=== PATIENT | female | born 1950 | race Caucasian/White ===

== ENCOUNTER 2024-01-29 10:34 | Outpatient (REF) | payer MEDICARE, SELFPAY ==
[2024-01-29 13:23] LABS: MANUAL DIFF FLAG NO
[2024-01-29 13:35] LABS: Basophils Absolute Auto 0.1 X10*3/uL (0.0-0.2); Basophils Percent Auto 0.7 % (0-2); Eosinophils Absolute Auto 0.2 X10*3/uL (0.0-0.4); Eosinophils Percent Auto 2.6 % (0-4); Hemoglobin 15.5 g/dl (12.0-16.0); Imm Gran Abs Auto 0.02 X10*3/uL (0.00-0.03); Imm Gran Pct Auto 0.3 % (0.0-0.4); Lymphocytes Absolute Auto 1.2 X10*3/uL (1.2-4.9); Lymphocytes Percent Auto 17.3 % (20-40); Mean Corpuscular HGB Conc 33.7 g/dl (31.0-35.0); Mean Corpuscular Hemoglobin 30.5 pg (27.0-33.0); Mean Corpuscular Volume 90.4 fL (80.0-98.0); Mean Platelet Volume 10.4 fL (9.4-12.3); Monocytes Absolute Auto 0.8 X10*3/uL (0.1-1.2); Monocytes Percent Auto 11.1 % (2-11); Neutrophils Absolute Auto 4.8 x10*3/uL (2.0-8.3); Platelet Count 326 X10*3/uL (160-400); Red Blood Count 5.09 X10*6/uL (4.20-5.50); Red Cell Distribution Width 12.6 % (11.0-16.0)
[2024-01-29 14:17] LABS: Alanine Aminotransferase 29 U/L (0-31); Albumin Level 4.1 g/dL (3.5-5.0); Alkaline Phosphatase 103 U/L (39-117); Anion Gap 14 (12-20); Aspartate Amino Transferase 25 U/L (5-31); Bilirubin Total 0.6 mg/dL (0.0-1.0); Blood Urea Nitrogen 22 mg/dL (9-16); Calcium 9.7 mg/dL (8.4-10.2); Carbon Dioxide 26 mmol/L (22-29); Chloride 103 mmol/L (96-108); Estimated Glomerular Filt Rate > 60; Glucose Random 92 mg/dL (60-115); Potassium 4.4 mmol/L (3.3-5.1); Sodium 139 mmol/L (135-145); Total Protein 7.5 g/dL (6.5-8.0)
[2024-01-29 14:23] LABS: Thyroid Stimulating Hormone 0.01 uIU/mL (0.32-4.0)
[2024-01-29 14:33] LABS: Folate 12.8 ng/mL (> or = 4.0); Vitamin B12 474 pg/mL (200-900)
[2024-01-29 15:16] LABS: T4 Thyroxine 7.8 ug/dL (4.5-12.0)
== END 2024-01-29 10:35 | disposition home or self-care (01) ==
LOC: HO.MANLDS 10:34
PROVIDERS: Visit Provider Internal Medicine
DX: E03.9 Hypothyroidism, unspecified (principal); R41.89 Other symptoms and signs involving cognitive functions and awareness
CPT/HCPCS: 36415; 80053; 82607; 82746; 84436; 84443; 85025

== ENCOUNTER 2024-11-23 15:55 | Outpatient (REF) | payer MEDICARE, SELFPAY ==
[2024-11-23 18:19] LABS: MANUAL DIFF FLAG NO
[2024-11-23 18:27] LABS: Basophils Percent Auto 0.6 % (0-2); Eosinophils Absolute Auto 0.3 X10*3/uL (0.0-0.4); Eosinophils Percent Auto 4.5 % (0-4); Hematocrit 44.2 % (37.0-47.0); Imm Gran Abs Auto 0.02 X10*3/uL (0.00-0.03); Imm Gran Pct Auto 0.3 % (0.0-0.4); Lymphocytes Absolute Auto 2.1 X10*3/uL (1.2-4.9); Lymphocytes Percent Auto 30.6 % (20-40); Mean Corpuscular HGB Conc 33.9 g/dl (31.0-35.0); Mean Corpuscular Hemoglobin 29.7 pg (27.0-33.0); Mean Corpuscular Volume 87.5 fL (80.0-98.0); Mean Platelet Volume 10.3 fL (9.4-12.3); Monocytes Absolute Auto 0.8 X10*3/uL (0.1-1.2); Monocytes Percent Auto 11.6 % (2-11); Neutrophils Absolute Auto 3.5 x10*3/uL (2.0-8.3); Neutrophils Percent Auto 52.4 % (45-73); Platelet Count 340 X10*3/uL (160-400); Red Blood Count 5.05 X10*6/uL (4.20-5.50); Red Cell Distribution Width 12.5 % (11.0-16.0); White Blood Count 6.7 X10*3/uL (4.8-10.8)
--- OUTSIDE RECORDS SUMMARY | 2024-11-23 18:27 | XMS_ITS | Data Portability ---
Author Organization [facility] [employer] [facility], [facility] Address [address] [address] Care Team Providers Care Gas And Oil Checker Name Role Phone GERALD GO Primary Care Provider Assessment Encounter Date Assessment Date Assessment LastModified by Organization Details LastModified Time 03/15/2024 03/15/2024 Assessment and plan based on Geriatric 5 M framework (Mind, Mobility, Multicomplexity , Medications, and Matters Most) Bindu is a lolly, generous person who brought her father to live with her and provided him 06/04 care during [facility]. He Aug 2024 and she has noticed some cognitive changes herself since then - including forgetting if she took meds, forgetting if the kettle is on, forgetting at times where to turn when driving. Mind: Cognition: Cognitive changes which at this time seem consistent with normal aging changes which are superimposed on some anxiety/stress from taking care of her father and dealing with his affairs after his . Labs: 01/29/24: CBC wnl. Cr 0.82, BUN 22, Ca 9.7, glucose 92, TSH 0.01, FT4 7.8, B12 474 Folate 12.8 Head imaging: MRI done 02/27/24 at [facility]. read as normal overall. no evidence of a regional brain parenchymal volume loss pattern or hydrocephalus. MOCA 8.1, done today, 03/15/2024 VIsuospatial/ex ecutive: 01/16 Namin/3 Attention: 02/17 Language: 33 Abstraction: 2/2 Delayed recall: /; MIS = 15 Orientation: 02/17 Score: 30/30 Plan: Had MRI Brain done - no sig findings She knows that her TSH is suppressed but has a hard time regulating it. Would see if perhaps it might be helpful to lower her dose of Effort Thyroid if feeling more anxious, over talking, palpitations -- but appreciate this has been difficult to regulate and she doesnt want to gain 30 lbs. There are some things that we know can help with overall cognition. Important to be an active listener - repeat back, write things down. If she notices she is overtalking, would try to do a box breath to slow her mind down. Our ability to multi- task gets worse as we get older Try to just do one thing at a time Physical activity is the best thing - 30 minutes 4-5 times a week but start off slow and build up - could it be Sandro or getting back to belly dancing? Mental activity - learning a new skill Social activity Meditation and/or Speedy Chi can help Would work to treat anxiety as well - consider sertraline. Would work to put pills in a pill box Consider an electric tea kettle to prevent leaving the stove on. Would use GBS when driving. Please contact if you notice further changes. Diagnosis reviewed? No dx at this time. Mood: h/o longstanding depression with some anxiety She notices (as do I) that she is overtalking people and has a hard time slowing down. No other signs of joana noted and she wonders if this is due to some anxiety. Plan: Continue with therapy Consider seeing a psychiatrist. She likes to sing - it makes her happy. Would work to get in some physical exercise as well as try meditation. Consider a SSRI like sertraline to help with anxiety - it may improve her thought process as well. Mobility: not an issue at this time though not doing things for exercise. Multicomplexity / Medications: Plan: Would put pills in a pill box Matters most: trying to survive and help other people and animals. ACP: Health care proxy: Mello Quintanilla: didnt discuss I personally spent 140 minutes preparing for, caring for the patient (F2F and non-F2F), and finalizing the visit for this patient, which included discussion with patient and/or family about diagnosis, prognosis, recommendations , risk/benefits, risk reduction and education of above. Thank you for this interesting consult. Will f/u as needed. [email or web address] Not available 03/15/2024 21:15:34 Plan of Treatment Reminders Order Date Submit Date Provider Last Modified By Organization Details Last Modified Time Details Appointments None record ed. Lab None record ed. Referral None record ed. Procedures None record ed. Surgeries None record ed. Imaging None record ed. Medication Orders None record ed. Patient TargetsNo targets recorded. Patient InstructionsNo instructions recorded. Reason for Referral None Reported. Results Created Date Observation Date Name Description Value Unit Range Abnormal Flag Note LastModifiedBy Organization Detail LastModifiedTime 03/23/20 24 03/23/2024 MRI, brain , w/o contr ast No observ ation record ed. [email or web address] [facility] [address], [place], [address], 03/26/2024 03:30:44 Result Notes None recorded. Problems Name Problem SNOMED Code Status Onset Date Resolution Date Notes Provider Name and Address Organization Details Recorded Time Memory impairment 922745696 Active 2023 Hui Os[facility] MD [address], [place], [address], [employer] 4 13:17:44 Asthma 811150665 Active 2023 Hui [facility] MD [address], [place], [address], [employer] 4 13:17:50 Osteoporosis 34690003 Active 2023 Hui Os[facility] MD [address], [place], [address], [employer] 4 13:18:00 Palpitations 82472376 Active 2023 Hui Os[facility] MD [address], [place], [address], [employer] 4 13:18:08 Hypothyroidism 36506983 Active 2023 Hui Osborne MD [address], [place], [address], [employer] 4 13:18:22 Anxiety 96547399 Active 2023 Hui Os[facility] MD [address], [place], [address], [employer] 4 21:15:55 Problem Notes None recorded. Procedures Surgical History None recorded. Imaging Results Imaging Date Name Status LastModified by Organiz ation Details LastModified Time 03/23/2024 MRI, brain, w/o contrast completed [email or web address] [facility] [address] [facility], [place], [address], 03/26/2024 03:30:44 Procedure Notes None recorded. Medical Equipment None Reported. Allergies Allergen ID Allergen Name Allergen Category Reaction Reaction Severity Criticality Documentation Date Start Date Code Code System Note Provider Name and Address Organization Details Recorded Time 218 Iodinated contrast media (substanc e) medicatio n hives Not available unabletoasse 03/15/2024 44904 2003 SNOMED Natalia [employer] [facility] [employer] 4 12:59:42 Medications Name Sig Start Date Stop Date Status Note LastModified by Organization Details LastModified Time Effort Thyroid 90 mg tablet active Not Available Not Available No t Available omeprazole 40 mg capsule,shahla yed release active Not Available Not Available Not Available albuterol sulfate HFA 90 mcg/actuatio n aerosol inhaler INHALE 2 PUFFS EVERY 4 TO 6 HOURS NEEDED active Not Available Not Available No t Available Vitals Date Recorded Heart rate Body height Body mass index (BMI) Body weight Oxygen saturation Oxygen saturation in Arterial blood by Pulse oximetry Systolic blood pressure Diastolic blood pressure Provider Name and Address Organization Details Last Updated DateTime 4 63 /min 168.91 cm 22.1 kg/m2 80416.3 4 g 97 % 97 % 102 mm[Hg] 58 mm[Hg] Natalia Everlaw 4 13:16:04 Social History None recorded. Functional Status None recorded. Mental Status None recorded. Family History Nothing Reported. Medical History No medical history recorded. Gynecological HistoryNo gynecological history recorded. Obstetrics History GPAL:G 0 P 0 0 0 0 Past Encounters Encounter ID Performer Location Encounter Start Date Encounter Closed Date Diagnosis/Indication Diagnosis SNOMED-CT Code Diagnosis ICD10 Code Diagnosis Note 171 MD [facility] [address] [place] [address] 03/15/2024 12:56:09 03/15/2024 21:24:24 Memory impairment 915053386 R41.3 as above - most likely normal aging changes but would monitor and contact us again if noticing more changes.Wo uld then consider neuropsych assessment Hypothyroidism 52431208 E03.9 h/o but note TSH suppressed and FT4 elevated -would talk to robert mai doctor about slightly lowering dose and seeing if this helps with anxiety Osteoporosis 88287610 M8 1.0 Would ensure she is on vitamin D, gets calcium in her diet and consider a bisphospho bernardo if not already on Anxiety 07324823 F41.9 as above - would try exercise, meditation and consider sertraline Health Concerns Section Related Observation LastModified by Organization Detai ls LastModified Time None Recorded Concern Status LastModified by Organization Details LastModified Time None Recorded Advance Directives Directive None Recorded Payers Encounter Date Sequence Insurance Name Policy Number Policy Pro Covered Member ID Pro Member ID Guarantor Name 03/15/2024 1 [place] [employer] Bindu Singh [id number] Bindu Singh 03/15/[address] [facility] [employer] (MEDICARE SUPPLEMENT) Bindu Singh [id number] Bindu Singh Notes Date Note Type Note Provider Name and Address Organization Details Recorded Time 03/15/2024 text/html PCP: Dr Gerald cooley Referred by: Dr Go, herself. Person to contact for follow up visits: Self Goals for visit:To discuss with Dr Osborne my recent cognitive changes, decline and elicia short term memory loss. Having an thought and then forgetting it (I write everything down now) Forgetting if I took my pills, forgetting which way when driving to the dr's office, forgetting I was boiling water as examples. 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 Memory loss:FH Her mother had memory loss/dementia in the last year of her life - around age 88 y/o. Up until mid August, she was taking care of her father until he . This was all consuming. After her father passed, over the past 6 months, cognitive decline seems to be accelerating a little bit but she had noticed changes prior to this.She is trying to go back to a normal life after 6 years after taking care of her father.Now she is going out with her as she didnt leave her father for years during [facility].Then they had to go to [facility] to clear out the apartment - it took 8 loads. there was a lot to clear out. She would work hard to clear things out, 10-12 hours/day. Sometimes she is not in a great mood. She is not quite herself.She does not know if her memory is worse than others. She says her is not noticing any changes. She does notice that she loses her train of thought - this is the most disturbing thing. She says that she is not feeling anxious about this, no history of ADHD. Then she says she may be feeling a little anxious. Family/caregiver history: Came in on her own. Recent ED visits/hospitalization s:ER visit [facility] February not an emergency but I couldt get a drs appointment. Stomach pain. ED tested for me for many things except what I came for - the problem has resolved on its own and pain mostly gone. Function:ADL: (bathing, dressing, toileting, transferring, continence, feeding)IndependentIAD L: ( Telephone, shopping, food preparation, housekeeping, laundry, Transportation, Medications, Finances)Independent, no problems paying bills, no financial scams. No trouble keeping track of what she is cooking. Supports:Help at home: NoWho provides the care? naDo you provide care for a family member? No General information about you: Mobility:Assistive device: noneAny falls? NoAre you afraid of falling? No Sleep:How would you describe your sleep? good (options: good, fair, poor)Do you snore? dont know (options: yes, no, don't know)Have you ever been tested for sleep apnea? no (yes, no, don't know) Driving? YesAny concerns? Some times she has to really think about where to turn. Nutrition:Appetite: goodHas food intake declined over the past 3 months? noWeight loss/gain: gained weightWould you like assistance with meals? no Finances: Any concerns? no Health Maintenance:Overall health: goodDepression//sadnes s: noAnxiety: noMemory loss: not sureAre you or others concerned about your memory?: yesFeels safe at home: yesHearing Test: noEye exam: yesDentist: yesHave you decreased the amt of time you spend with family/friends in the past year?: no Physical fitness: no Frailty Screening:Fatigue: n/aResistance (able to climb a flight of stairs): yesAerobic (able to walk a block): yesPresence of > 5 illnesses(HTN, DM, CA, chronic respiratorydisease, [place], CVA, arthritis (or RA), CKD, or liver disease): noWeight loss > 5% in the past 6 months: noScore: 0(Robust: 0, Pre-frail: 1-2, Frail: >=3) Social History:Born/raised: [facility], one sister 2 years younger, she is bipolar/schizofather was great but mother not so much - her mother would put her down.Had some issues as a teenage -Educational level: BA College [employer], lived at home, last year [facility], then [place], [place] and then to [place], [place]iving situation: [facility] [place]ual orientation: straightPartnership status: around 20 years ago, RichardOccupation: retired, 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 n/aETOH: less than once a week.Concern about amount of ETOH? NoTobacco: 1ppd x 2 years, quit 50 years ago.Other drugs: no FH: Mother had Alzheimers Hui Osborne MD [address] [place] [address], [place], [address], [facility] [employer] 03/15/2024 21:19:38 OBGyn Episode No OBEpisode recorded.
--- OUTSIDE RECORDS SUMMARY | 2024-11-23 18:28 | XMS_ITS | Data Portability ---
Author Organization [facility] Address [address] [place] [address] Assessment Encounter Date Assessment Date Assessment LastModified by Organization Details LastModified Time 01/29/2024 01/29/2024 [id number] [place] [id number] (PERSONAL LINES ADVISOR) [facility] MODERATE MUST MEET 2 OUT OF 3 ELEMENTS: PROBLEMS, DATA OR RISK ELEMENT 1: PROBLEMS ADDRESSED 1 OR MORE CHRONIC ILLNESS WITH EXACERBATION OR 2 OR MORE STABLE CHRONIC ILLNESSES OR 1 UNDIAGNOSED NEW PROBLEM OR 1 ACUTE ILLNESS W/SYMPTOMS OR 1 ACUTE COMPLICATED INJURY ELEMENT 2: DATA MUST MEET 1 OF 3 CATEGORIES CATEGORY 1: REVIEW OF PRIOR EXTERNAL NOTES, REVIEW OF RESULTS, ORDERING OF EACH TEST, ASSESSMENT REQUIRING INDEPENDENT HISTORIAN OR CATEGORY 2: INDEPENDENT INTERPRETATION OF TESTS BY ANOTHER PHYSICIAN OR SPECIALIST OR CATEGORY 3: DISCUSSION OF MGT OR TEST INTERPRETATION W/EXTERNAL PHYSICIAN OR SPECIALIST ELEMENT 3: RISK RISK OF COMPLICATIONS AND/OR MORBIDITY OR MORTALITY OF PATIENT MANAGEMENT PROVIDER MUST THOROUGHLY DOCUMENT EACH ELEMENT THAT IS COVERED Not available 01/29/2024 10:24:11 03/09/2024 03/09/2024 [id number] [place] [id number] (PERSONAL LINES ADVISOR) [facility] MODERATE MUST MEET 2 OUT OF 3 ELEMENTS: PROBLEMS, DATA OR RISK ELEMENT 1: PROBLEMS ADDRESSED 1 OR MORE CHRONIC ILLNESS WITH EXACERBATION OR 2 OR MORE STABLE CHRONIC ILLNESSES OR 1 UNDIAGNOSED NEW PROBLEM OR 1 ACUTE ILLNESS W/SYMPTOMS OR 1 ACUTE COMPLICATED INJURY ELEMENT 2: DATA MUST MEET 1 OF 3 CATEGORIES CATEGORY 1: REVIEW OF PRIOR EXTERNAL NOTES, REVIEW OF RESULTS, ORDERING OF EACH TEST, ASSESSMENT REQUIRING INDEPENDENT HISTORIAN OR CATEGORY 2: INDEPENDENT INTERPRETATION OF TESTS BY ANOTHER PHYSICIAN OR SPECIALIST OR CATEGORY 3: DISCUSSION OF MGT OR TEST INTERPRETATION W/EXTERNAL PHYSICIAN OR SPECIALIST ELEMENT 3: RISK RISK OF COMPLICATIONS AND/OR MORBIDITY OR MORTALITY OF PATIENT MANAGEMENT PROVIDER MUST THOROUGHLY DOCUMENT EACH ELEMENT THAT IS COVERED Not available 03/09/2024 11:56:38 04/08/2024 04/08/2024 [id number] [place] [id number] (PERSONAL LINES ADVISOR) [facility] MODERATE MUST MEET 2 OUT OF 3 ELEMENTS: PROBLEMS, DATA OR RISK ELEMENT 1: PROBLEMS ADDRESSED 1 OR MORE CHRONIC ILLNESS WITH EXACERBATION OR 2 OR MORE STABLE CHRONIC ILLNESSES OR 1 UNDIAGNOSED NEW PROBLEM OR 1 ACUTE ILLNESS W/SYMPTOMS OR 1 ACUTE COMPLICATED INJURY ELEMENT 2: DATA MUST MEET 1 OF 3 CATEGORIES CATEGORY 1: REVIEW OF PRIOR EXTERNAL NOTES, REVIEW OF RESULTS, ORDERING OF EACH TEST, ASSESSMENT REQUIRING INDEPENDENT HISTORIAN OR CATEGORY 2: INDEPENDENT INTERPRETATION OF TESTS BY ANOTHER PHYSICIAN OR SPECIALIST OR CATEGORY 3: DISCUSSION OF MGT OR TEST INTERPRETATION W/EXTERNAL PHYSICIAN OR SPECIALIST ELEMENT 3: RISK RISK OF COMPLICATIONS AND/OR MORBIDITY OR MORTALITY OF PATIENT MANAGEMENT PROVIDER MUST THOROUGHLY DOCUMENT EACH ELEMENT THAT IS COVERED Not available 04/08/2024 12:05:01 11/23/2024 11/23/2024 [id number] [place] [id number] (PERSONAL LINES ADVISOR) MDM MODERATE MUST MEET 2 OUT OF 3 ELEMENTS: PROBLEMS, DATA OR RISK ELEMENT 1: PROBLEMS ADDRESSED 1 OR MORE CHRONIC ILLNESS WITH EXACERBATION OR 2 OR MORE STABLE CHRONIC ILLNESSES OR 1 UNDIAGNOSED NEW PROBLEM OR 1 ACUTE ILLNESS W/SYMPTOMS OR 1 ACUTE COMPLICATED INJURY ELEMENT 2: DATA MUST MEET 1 OF 3 CATEGORIES CATEGORY 1: REVIEW OF PRIOR EXTERNAL NOTES, REVIEW OF RESULTS, ORDERING OF EACH TEST, ASSESSMENT REQUIRING INDEPENDENT HISTORIAN OR CATEGORY 2: INDEPENDENT INTERPRETATION OF TESTS BY ANOTHER PHYSICIAN OR SPECIALIST OR CATEGORY 3: DISCUSSION OF MGT OR TEST INTERPRETATION W/EXTERNAL PHYSICIAN OR SPECIALIST ELEMENT 3: RISK RISK OF COMPLICATIONS AND/OR MORBIDITY OR MORTALITY OF PATIENT MANAGEMENT PROVIDER MUST THOROUGHLY DOCUMENT EACH ELEMENT THAT IS COVERED Not available 11/23/2024 15:43:42 Plan of Treatment Reminders Order Date Submit Date Provider Last Modified By Organization Details Last Modified Time Details Appointments FOLLOW UP 15 2024 03:15P M DR GO Not available Not available Not available Lab TSH + free T4, serum 2024 025 [facility], [address] [place] [address], [place], [address], 11/23/2024 15:53:33 CMP, serum or plasma 2024 025 [facility], [address] [facility], [place], [address], 11/23/2024 15:53:33 CBC 2024 025 [facility] - 2023 Fax, [address] [place], [address], 11/23/2024 15:48:[address] pylori, culture, unspecifi ed specimen 2023 024 [facility] - 2023 Fax, [address] [place], [address], 04/26/2024 01:55:02 vitamin B12 + folate, serum or blood 2023 024 Not available 01/29/2024 11:24:22 CMP, serum or plasma 2023 024 [facility] Not available 02/01/2024 11:20:29 TSH + free T4, serum 2023 024 [facility] Not available 02/01/2024 11:20:29 CBC 2023 024 [facility] Not available 02/01/2024 11:20:30 Referral geriatric medicine referral 2023 024 hrubner Hui Osborne MD, [address] [place] [address], [place], [address], 03/02/2024 08:26:52 Procedures None recorded. Surgeries None recorded. Imaging CT, colonogra m, diagnosti c, w/ contrast 2024 025 [facility] - Outpatient Imaging Central Scheduling (Not Breast), [address] [place], [address], 11/23/2024 15:57:53 RF, upper gastroint estinal tract, w/ contrast PO 2023 024 hrubner Not available 03/16/2024 08:53:49 US, abdomen, complete 2023 024 hrubner Not available 03/21/2024 09:00:26 MRI, brain, w/o contrast 2023 024 hrubner Not available 02/01/2024 09:27:42 Medication Orders triamcino lone acetonide 0.1 % topical cream 2019 020 [id number] [id number] [id number], [address] [place], [place], [id number], 01/29/2024 09:35:01 Patient TargetsNo targets recorded. Patient Instructions Encounter Date Encounter Id Patient Instructions Last Modified By Organization Details Last Modified Time 08/27/2020 [id number] controlling your asthma: care instructions Not available 08/27/2020 12:18:05 learning about asthma Not available 08/27/2020 12:18:05 osteoporosis: care instructions Not available 08/27/2020 12:18:05 hypothyroidism: care instructions Not available 08/27/2020 12:18:05 Reason for Referral Geriatric Medicine Referral for Impaired cognition Referring Physician: Lam Go, Internal Medicine, Encounter Date: 01/29/2024 Results Created Date Observation Date Name Description Value Unit Range Abnormal Flag Note LastModifiedBy Organization Detail LastModifiedTime 02/28/2002/27/2024 MRI, brain , w/o contr ast No observ ation record ed. [address], [address], 02/29/2024 22:16:27 04/04/20 24 04/04/2024 US, abdom en, compl ete No observ ation record ed. [address], [address], 04/06/2024 02:16:45 04/04/20 24 04/04/2024 RF, upper gastr ointe vasquez l tract , w/ contr ast PO No observ ation record ed. [address], [address], 04/06/2024 02:16:45 Result Notes None recorded. Problems Name Problem SNOMED Code Status Onset Date Resolution Date Notes Provider Name and Address Organization Details Recorded Time Hypothyroi dism 63348445 Active 2018 Not Available [facility] 13:26:15 Eczema 30038841 Active 2018 Not Available [facility] 13:26:15 Menopause Active 2018 2005 Not Available [facility] 13:26:15 Osteoporos is 55721475 Active 2018 Not Available [facility] 13:26:15 Asthma 788334667 Active 2019 Not Available [facility] 13:26:15 Impaired cognition 282347734 Active 2023 Lam Go DO [address] [place] [address], [address], [facility] 4 10:19:02 Epigastric pain 66862483 Active 2023 Lam Go, DO [address] [place] [address], [address], [facility] 4 11:55:47 Colorectal cancer detected by DNA-based stool screening 896020363 Active 2024 Lam Go, DO [address] [place] [address], [address], [facility] 5 15:36:16 Problem Notes None recorded. Procedures Surgical History Date Name Laterality Status Provider Name and Address Organization Details Recorded Time 09/14/18 80 augmentation of breast with immediate insertion of breast prosthesis completed December NSURAT Toure [address] [place], [address], [facility] 10/18/2018 13:44:18 Imaging Results Imaging Date Name Status LastModified by Organization Details LastModified Time 02/27/2024 MRI, brain, w/o contrast completed [address], [place], [address], 02/29/2024 22:16:27 04/04/2024 US, abdomen, complete completed [address], [address], 04/06/2024 02:16:45 04/04/2024 RF, upper gastrointestinal tract, w/ contrast PO completed [address], [address], 04/06/2024 02:16:45 Procedure Notes None recorded. Medical Equipment None Reported. Allergies No known drug allergies Medications Name Sig Start Date Stop Date Status Note LastModified by Organization Details LastModified Time [place] Thyroid 60 mg tablet TAKE 1 TABLET BY MOUTH ONCE DAILY 01/28 completed Not Available Not Available Not Available [place] Thyroid 90 mg tablet active Not Available Not Available No t Available omeprazole 40 mg capsule,del ayed release active Not Available Not Available Not Available triamcinolo ne acetonide 0.1 % topical cream APPLY THIN LAYER TOPICALLY TO THE AFFECTED AREA TWICE DAILY active Not Available Not Available No t Available [place] Thyroid 15 mg tablet TAKE 1 TABLET BY MOUTH EVERY DAY 01/28 completed Not Available Not Available Not Available albuterol sulfate HFA 90 mcg/actuati on aerosol inhaler INHALE 2 PUFFS EVERY 4 TO 6 HOURS NEEDED active Not Available Not Available No t Available diltiazem 30 mg tablet 01/28 completed Not Available Not Available Not Available Fluzone High-Dose Quad (PF) 240 mcg/0.7 mL IM syringe ADM 0.7ML IM UTD 01/28 completed Not Available Not Available Not Available Vitals Date Recorded Body height Body mass index (BMI) Body weight Heart rate Respiratory rate Oxygen saturation Oxygen saturation in Arterial blood by Pulse oximetry Systolic blood pressure Diastolic blood pressure Provider Name and Address Organization Details Last Updated DateTime 4 168.91 cm 22.1 kg/m2 47490.9 8 g 65 /min 18 /min 98 % 98 % 120 mm[Hg] 76 mm[Hg] [facility] 4 09:31:44 Date Recorded Body height Body mass index (BMI) Body weight Heart rate Oxygen saturation Oxygen saturation in Arterial blood by Pulse oximetry Systolic blood pressure Diastolic blood pressure Provider Name and Address Organization Details Last Updated DateTime 4 168.91 cm 22 kg/m2 70401.1 8 g 66 /min 99 % 99 % 100 mm[Hg] 68 mm[Hg] Kiki Avitia [facility] 4 11:24:22 Date Recorded Body height Body mass index (BMI) Body weight Heart rate Oxygen saturation Oxygen saturation in Arterial blood by Pulse oximetry Systolic blood pressure Diastolic blood pressure Provider Name and Address Organization Details Last Updated DateTime 4 168.91 cm 22.3 kg/m2 75877.2 9 g 71 /min 98 % 98 % 108 mm[Hg] 68 mm[Hg] Kiki Avitia [facility] 4 11:29:49 Date Recorded Body height Body mass index (BMI) Body weight Heart rate Oxygen saturation Oxygen saturation in Arterial blood by Pulse oximetry Systolic blood pressure Diastolic blood pressure Provider Name and Address Organization Details Last Updated DateTime 5 168.91 cm 22.9 kg/m2 75548.3 g 86 /min 98 % 98 % 102 mm[Hg] 64 mm[Hg] Kiki Avitia [facility] 5 15:26:45 Social History Question Answer Notes LastModified by Organizat ion Details LastModified Time Tobacco Smoking Status [facility] 10/18/2018 13:38:00 What Was The Date Of Your Most Recent Tobacco Screening? 11/23/2024 [email or web address] Information not available 11/23/2024 Sex: Male Functional Status None recorded. Mental Status None recorded. Family History Relationship Description Onset Age of this Age Resolved Age Notes LastModified by Organization Details LastModified Time Mother Alzheimer's disease [email or web address] Not available 2018 09:31:41 Mother Atrial fibrillation [email or web address] Not available 08/2025 15:07:44 Mother Murmur [email or web address] Not available 0 11/23/2024 15:07:44 Father Myocardial infarction [email or web address] Not available 10/18 09:32:28 Medical History Condition Response Chicken Pox Y Gynecological History Statement/Question Response If Post Menopausal, Age at Menopause 52 Age at Menarche 14 Obstetrics History GPAL:G 1 P 0 0 1 0 Type Value Full Term 0 Induced 1 Total 1 Immunizations Vaccine Type Date Status Note Provider Nam e and Address Organization Details Recorded Time COVID-19, mRNA, LNP-S, PF, 30 mcg/0.3 mL dose 06/07/20 21 completed Lam Go DO [address] [place] [address], [address], [facility] 06/09/2021 08:33:27 Influenza, split virus, quadrivalent, preservative 06/12/20 19 completed Alex peters, [facility] 06/13/2019 06:52:07 pneumococcal polysaccharide PPV23 06/12/20 19 completed Alex peters [facility] 06/13/2019 06:52:20 Influenza, split virus, quadrivalent, preservative 05/29/20 20 [facility] 13:50:46 Influenza, split virus, quadrivalent, preservative 05/16/20 18 completed Lam Go DO [address] [place] [address], [address], [facility] 05/17/2018 13:28:10 Pneumococcal conjugate PCV 13 05/16/20 18 completed Lam Go DO [address] [place] [address], [address], [facility] 05/17/2018 13:28:39 Past Encounters Encounter ID Performer Location Encounter Start Date Encounter Closed Date Diagnosis/Indication Diagnosis SNOMED-CT Code Diagnosis ICD10 Code Diagnosis Note [id number] December NUSRAT Toure [facility] [address] [facility],[place] [address] 10/18/2018 13:23:56 10/18/2018 14:23:09 Hypothyroidism 23083164 E03.9 she would like to see endo - javier sigala, so pt will schedule and then contact us so we can send the referral for this Palpitations 62901375 R0 0.[address] - scheduled to have holter monitor Anxiety 43305488 F41.9 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 [address] [facility] [address] 08/27/2020 08:48:02 08/27/2020 15:29:33 Eczema 93604058 L30.9 has been on her back and is really itchy and irritating using otc tx Hypothyroidism 37900951 E03.9 long discussion re thyroid and the usage of her armour thyroid she is coordinati ng this with dr Henry Osteoporosis 67328177 M8 1.0 has not had a recent bmd test yet Asthma 219004099 J45.90 9 seems stable and is doing ok no recent exacerb [id number] Lam Go [facility] [address] [facility],[place] [address] 01/29/2024 09:18:30 01/29/2024 10:28:10 Asthma 206465497 J45.909 seems stable and is doing ok no recent exacerb Hypothyroidism 36387538 E03.9 long discussion re thyroid and the usage of her armour thyroid she is coordinati ng this with dr Henry Depression screening 171 780318 Z13.31 Negative Impaired cognition 21894 6002 R41.89 will refer [id number] Lam Go [facility] [address] [facility] [address] 03/09/2024 11:14:16 03/09/2024 13:41:51 Epigastric pain 30097154 R10.13 [id number] Lam Go [facility] [address] [facility] [address] 04/08/2024 11:23:07 04/08/2024 12:12:42 Epigastric pain 01963491 R10.13 work up this ar eis neg [id number] Lam Go DO [facility] [address] [facility] [address],[place] [address] 11/23/2024 15:06:57 11/23/2024 15:57:53 Colorectal cancer detected by DNA-based stool screening 119820131 R19.5 pt is very reluctant to get a colonoscop y wondering about a virtual ct scan instead Hypothyroidism 27896121 E03.9 long discussion re thyroid and the usage of her armour thyroid she is coordinati ng this with dr Henry [facility] Concerns Section Related Observation LastModified by Organization Detai ls LastModified Time None Recorded Concern Status LastModified by Organization Details LastModified Time None Recorded Advance Directives Directive None Recorded Payers Encounter Date Sequence Insurance Name Policy Number Policy Pro Covered Member ID Pro Member ID Guarantor Name 08/27/2020 2 [employer] - OPTIONS Bindu Singh [id number] Bindu Singh 08/27/2020 1 [place] Bindu Singh [id number] Senthiln Yohannes Chatchidi 01/29/2024 2 [employer] - OPTIONS Fern Francisco [id number] Senthiln Yohannes Singh 01/29/2024 1 [place] [employer]MENT [employer] Bindu Singh [id number] Bindu Sheffield Chatchidi 03/09/2024 2 [employer] - OPTIONS Bindu Singh [id number] Senthiln Yohannes Chatchidi 03/09/2024 1 [place] [employer] Senthiln Yohannes Chatel [id number] Senthiln Yohannes Chatchidi 04/08/2024 2 [employer] - OPTIONS Fern Francisco [id number] Senthiln Yohannes Chatchidi 04/08/2024 1 [place] [employer] Senthiln Yohannes Singh [id number] Bindu Sheffield Chatchidi 11/23/2024 2 [employer] - OPTIONS Bindu Singh [id number] Senthiln Yohannes Chatchidi 11/23/2024 1 [place] [employer] Bindu Singh [id number] Fern J Chatel Notes Date Note Type Note Provider Name a nd Address Organization Details Recorded Time 08/27/2020 text/html here for tele visit per her consent / pandemic surge discussed her palpitations only when lying down and sleeping wakes he up relates her recent cardiology visit 1 month ago had a good ETT, echo and holter monitor and all WNL currently she is less stressed is being followed by dr henry and she is self monitoring her Lam Go DO [address] [place], [address], [facility] 08/27/2020 12:21:11 01/29/2024 text/html relates spent 6 years caring for her dadstates that she has been noticing she has been having some decline in her short term memoryshe had a mom with Alzshe is worried about developing cognitive decline relates that this has been noticeable over the past year Lam Go DO [address] [place] [address], [address], [facility] 01/29/2024 10:24:35 03/09/2024 text/html here for geovani segura nd relates that she was in the ER for eval of abdom painthey did a work up and had no evid of obvious dsbut she did not have an US abd pain is much less lately but she stil has an odd pain which is described as a hunger amber Lam Go DO [address] [place], [address], [facility] 03/09/2024 12:00:39 04/08/2024 text/html here foir geovani and is doing ok\pUGI discussed in detail the finding so the US and the xr ugi Lam Go DO [address] [place], [address], [facility] 04/08/2024 12:05:30 11/23/2024 text/html here for geovani segura nd states did a cologuard test done from an outside source Lam Go DO [address] [place], [address], [facility] 11/23/2024 15:50:47 OBGyn Episode No OBEpisode recorded.
--- OUTSIDE RECORDS SUMMARY | 2024-11-23 18:28 | XMS_ITS | Continuity of Care Document ---
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, [address] [place] [address], [id number], 11/23/2024 15:53:33 CMP, serum or plasma 2024 025 [facility], [address] [place] [address], [id number], 11/23/2024 15:53:33 CBC 2024 025 [email or web address] - 2023 Fax, [address] [place], [address], 11/23/2024 15:48:59 Referral None recorded. Procedures None recorded. Surgeries None recorded. Imaging CT, colonogra m, diagnosti c, w/ contrast 2024 025 [email or web address] [facility] - Outpatient Imaging Central Scheduling (Not Breast), [address] [place], [address], 11/23/2024 15:57:53 Medication Orders None recorded. Patient TargetsNo targets recorded. Patient InstructionsNo instructions recorded. Reason for Referral None Reported. Problems Name Problem SNOMED Code Status Onset Date Resolution Date Notes Provider Name and Address Organization Details Recorded Time Hypothyroi dism 37501672 Active 2018 Not Available [facility] 13:26:15 Eczema 79851261 Active 2018 Not Available [facility] 13:26:15 Menopause Active 2018 Not Available [facility] 13:26:15 Osteoporos is 83835784 Active 2018 Not Available [facility] 13:26:15 Asthma 397397021 Active 2019 Not Available [facility] 13:26:15 Impaired cognition 165799147 Active 2023 Lam Go DO [address] [place] [address], [phone], [facility] 4 10:19:02 Epigastric pain 66663549 Active 2023 Lam Go DO [address] [place] [address], [phone], [facility] 4 11:55:47 Colorectal cancer detected by DNA-based stool screening 519057297 Active 2024 Lam Go DO [address] [place] [address], [phone], [facility] 5 15:36:16 Problem Notes None recorded. Procedures Surgical History Date Name Laterality Status Provider Name and Address Organization Details Recorded Time 09/14/18 80 augmentation of breast with immediate insertion of breast prosthesis completed December NUSRAT Toure [address] [place] [address], [phone], [facility] 10/18/2018 13:44:18 Imaging Results None recorded. Procedure Notes None recorded. Medical Equipment None Reported. Allergies No known drug allergies Medications Name Sig Start Date Stop Date Status Note LastModified by Organization Details LastModified Time [place] Thyroid 60 mg tablet TAKE 1 TABLET BY MOUTH ONCE DAILY 01/28 completed Not Available Not Available Not Available [place] Thyroid 90 mg tablet active Not Available Not Available No t Available omeprazole 40 mg capsule,del ayed release active Not Available Not Available Not Available triamcinolo ne acetonide 0.1 % topical cream APPLY THIN LAYER TOPICALLY TO THE AFFECTED AREA TWICE DAILY active Not Available Not Available No t Available [place] Thyroid 15 mg tablet TAKE 1 TABLET [...] Updated DateTime 5 168.91 cm 22.9 kg/m2 96936.3 g 86 /min 98 % 98 % 102 mm[Hg] 64 mm[Hg] Kiki Avitia [facility] 5 15:26:45 Social History Question Answer Notes LastModified by Organizat ion Details LastModified Time Tobacco Smoking Status Never Smoker Blanca peters [facility] 10/18/2018 13:38:00 What Was The Date Of Your Most Recent Tobacco Screening? 11/23/2024 [email or web address] Information not available 11/23/2024 Sex: Male Functional Status None recorded. Mental Status None recorded. Family History Relationship Description Onset Age of this Age Resolved Age Notes LastModified by Organization Details LastModified Time Mother Alzheimer's disease [email or web address] Not available 2018 09:31:41 Mother Atrial fibrillation [...] dose 06/07/20 21 completed Lam Go DO [address] [place] [address], [phone], [facility] 06/09/2021 08:33:27 Influenza, split virus, quadrivalent, preservative 06/12/20 19 completed Alex Go [facility] 06/13/2019 06:52:07 pneumococcal polysaccharide PPV23 06/12/20 19 [facility] 06:52:20 Influenza, split virus, quadrivalent, preservative 05/29/20 20 completed Ami Bales [facility] 05/30/2020 13:50:46 Influenza, split virus, quadrivalent, preservative 05/16/20 18 completed Lam Go DO [address] [place] [address], [phone], [facility] 05/17/2018 13:28:10 Pneumococcal conjugate PCV 13 05/16/20 18 completed Lam Go DO [address] [place] [address], [phone], [facility] 05/17/2018 13:28:39 Past Encounters Encounter ID Performer Location Encounter Start Date Encounter Closed Date Diagnosis/Indication Diagnosis SNOMED-CT Code Diagnosis ICD10 Code Diagnosis Note [id number] Lam Go DO [facility] [address] [address] 11/23/2024 15:06:57 11/23/2024 15:57:53 Colorectal cancer detected by DNA-based stool screening 349251291 R19.5 pt is very reluctant to get a colonoscop y wondering about a virtual ct scan instead Hypothyroidism 61549059 E03.9 long discussion re thyroid and the usage of her armour thyroid she is coordinati ng this with dr [facility] Concerns Section Related Observation LastModified by Organization Detai ls LastModified Time None Recorded Concern Status LastModified by Organization Details LastModified Time None Recorded Payers Encounter Date Sequence Insurance Name Policy Number Policy Pro Covered Member ID Pro Member ID Guarantor Name 11/23/2024 2 [employer] - OPTIONS Bindu Singh [id number] Bindu Singh 11/23/2024 1 [place] [employer] Bindu Singh [id number] Bindu Singh Notes Date Note Type Note Provider Name a nd Address Organization Details Recorded Time 11/23/2024 text/html here for rechk and states did a cologuard test done from an outside source Lam Go DO [address], [place], [address], [facility] 11/23/2024 15:50:47 OBGyn Episode No OBEpisode recorded.
[2024-11-23 19:08] LABS: Alanine Aminotransferase 33 U/L (0-31); Albumin Level 3.9 g/dL (3.5-5.0); Alkaline Phosphatase 117 U/L (39-117); Anion Gap 12 (12-20); Bilirubin Total 0.4 mg/dL (0.0-1.0); Blood Urea Nitrogen 21 mg/dL (9-16); Calcium 9.6 mg/dL (8.4-10.2); Carbon Dioxide 25 mmol/L (22-29); Chloride 108 mmol/L (96-108); Estimated Glomerular Filt Rate > 60; Glucose Random 117 mg/dL (60-115); Potassium 3.8 mmol/L (3.3-5.1); Sodium 141 mmol/L (135-145); Total Protein 7.5 g/dL (6.5-8.0)
[2024-11-23 19:13] LABS: Aspartate Amino Transferase 26 U/L (5-31)
[2024-11-23 19:21] LABS: Thyroid Stimulating Hormone < 0.01 uIU/mL (0.32-4.0)
[2024-11-23 19:40] LABS: T4 Thyroxine 9.9 ug/dL (4.5-12.0)
== END 2024-11-23 15:56 | disposition home or self-care (01) ==
LOC: HO.MANLDS 15:55
PROVIDERS: Visit Provider Internal Medicine
DX: E03.9 Hypothyroidism, unspecified (principal)
CPT/HCPCS: 36415; 80053; 84436; 84443; 85025